=== PATIENT | male | born 1945 | race Caucasian/White ===

== ENCOUNTER 2021-03-06 12:03 | Day surgery (SDCO) | payer MEDICARE ==
[~2021-03-06] VITALS: Ht 195.6 cm; Wt 107.7 kg
[2021-03-06 12:31] LABS: BASOPHIL 0.2 % (0-2); EOSINOPHIL 1.3 % (0-7); HCT 28.9 % (42.0-52.0); HGB 8.8 g/dl (13.2-18.0); LYMPHOCYTE 10.3 % (15-48); MCH 23.2 pg (25.0-31.0); MCHC 30.4 g/dL (32.0-36.0); MCV 76.1 fL (78.0-100.0); MONOCYTE 7.7 % (0-12); NEUTROPHIL 80.2 % (41-80); NRBC 0; PLT 316 K/uL (150-400); RDW 15.9 % (11.5-14.0); WBC 9.3 K/uL (4.0-10.5)
[2021-03-06 12:40] LABS: INR 1.18 (0.9-1.2); PROTHROMBIN TIME 14.2 SECONDS (11.4-13.6)
[2021-03-06 12:41] LABS: PTT 32.3 SECONDS (22.2-34.7)
[2021-03-06 12:47] LABS: ALBUMIN 2.8 g/dL (3.4-5.0); BILIRUBIN - TOTAL 0.7 mg/dL (0.2-1.0); CREATININE 0.85 mg/dL (0.67-1.17); GLOBULIN (CALCULATION) 4.3 g/dL; POTASSIUM 4.6 mmol/L (3.5-5.1); TOTAL PROTEIN 7.1 g/dL (6.4-8.2)
[2021-03-06] MEDS ORDERED: 8 HOUR650 MG PO (17:07)
[2021-03-06] MEDS ORDERED: ASPIRIN EC81 MG PO (17:08)
[2021-03-06] MEDS ORDERED: ARICEPT 5MG TABL5 MG PO (17:08)
[2021-03-06] MEDS ORDERED: EFFEXOR-XR 75 M75 MG PO (17:09)
[2021-03-06] MEDS ORDERED: CELEXA10 MG PO (17:09)
[2021-03-06] MEDS ORDERED: ESOMEPRAZOLE MA20 MG PO (17:11)
[2021-03-06] MEDS ORDERED: FEROSUL325 MG PO (17:12)
[2021-03-06] MEDS ORDERED: FLOMAX 0.4 MG0.4 MG PO (17:15)
[2021-03-06] MEDS ORDERED: INSULIN LI100 UNIT/2 SC (17:17)
[2021-03-06] MEDS ORDERED: PRINIVIL20 MG PO ×2 (17:18)
[2021-03-06] MEDS ORDERED: ATIVAN0.5 MG PO ×2 (17:19→17:20)
[2021-03-06] MEDS ORDERED: MELADOX3 MG PO (17:21)
[2021-03-06] MEDS ORDERED: METFORMIN HCL500 MG PO (17:22)
[2021-03-06] MEDS ORDERED: MIRALAX17 GM PO (17:23)
[2021-03-06] MEDS ORDERED: DAILY VITE1 EACH PO (17:24)
[2021-03-06] MEDS ORDERED: ONDANSETRON HCL4 MG PO (17:25)
[2021-03-06] MEDS ORDERED: RISPERDAL 1MG TA1 MG PO (17:26)
[2021-03-06] MEDS ORDERED: ZOCOR20 MG PO (17:26)
[2021-03-06] MEDS ORDERED: TRAZODONE 50MG50 MG PO (17:27)
[2021-03-07 04:03] LABS: BILIRUBIN NEGATIVE (NEGATIVE); BLOOD NEGATIVE Ery/uL (NEGATIVE); CLARITY CLEAR (CLEAR); COLOR YELLOW (YELLOW); GLUCOSE (U) NORMAL (NORMAL); LEUKOCYTES NEGATIVE Leu/uL (NEGATIVE); NITRITE NEGATIVE (NEGATIVE); PROTEIN NEGATIVE (NEGATIVE); SPECIFIC GRAVITY 1.015 (1.001-1.030)
[2021-03-07 05:43] LABS: BASOPHIL 0.3 % (0-2); EOSINOPHIL 2.2 % (0-7); HCT 29.2 % (42.0-52.0); HGB 8.7 g/dl (13.2-18.0); LYMPHOCYTE 13.2 % (15-48); MCH 23.3 pg (25.0-31.0); MCHC 29.8 g/dL (32.0-36.0); MCV 78.1 fL (78.0-100.0); MONOCYTE 9.7 % (0-12); MPV 9.9 fL (6.0-9.5); NRBC 0; PLT 265 K/uL (150-400); RBC 3.74 M/uL (4.70-6.00); RDW 16.1 % (11.5-14.0); RETICULOCYTE COUNT 0.9 % (1.0-2.0); WBC 7.1 K/uL (4.0-10.5)
[2021-03-07 06:02] LABS: IRON % SATURATION 7.9 %SAT (20-50)
[2021-03-07 06:03] LABS: ALBUMIN 2.6 g/dL (3.4-5.0); BILIRUBIN - TOTAL 0.6 mg/dL (0.2-1.0); BUN/CREAT RATIO (CALC) 18.2 RATIO; CREATININE 0.88 mg/dL (0.67-1.17); GLOBULIN (CALCULATION) 4.2 g/dL; POTASSIUM 4.4 mmol/L (3.5-5.1); TOTAL PROTEIN 6.8 g/dL (6.4-8.2)
--- NOTE | 2021-03-07 13:38 | NUR ---
03/07/21 Mr. Macdonald will be discahrge back to [facility]. He needs transportation assistance. Mr. Macdonald is not eligible for Medicaid to pay for [employer] transportation. [place] will pay for the [employer] transportation and therefore, will fax the required form to [facility] to schedule the transport. A report was given to ESTELA Graves RN.
== END 2021-03-07 16:00 ==
LOC: FER 12:03 → FTCU 16:12
PROVIDERS: Emergency Medicine; ADMIT Internal Medicine
DX: R07.89 Other chest pain (principal); N28.1 Cyst of kidney, acquired; R60.0 Localized edema; I11.9 Hypertensive heart disease without heart failure; E78.5 Hyperlipidemia, unspecified; E11.9 Type 2 diabetes mellitus without complications; K21.9 Gastro-esophageal reflux disease without esophagitis; K80.20 Calculus of gallbladder without cholecystitis without obstruction; I47.1 Supraventricular tachycardia; I07.1 Rheumatic tricuspid insufficiency; J90 Pleural effusion, not elsewhere classified; I48.0 Paroxysmal atrial fibrillation; Z87.891 Personal history of nicotine dependence; Z79.4 Long term (current) use of insulin; Z79.82 Long term (current) use of aspirin; Z79.899 Other long term (current) drug therapy; Z88.0 Allergy status to penicillin; Z88.2 Allergy status to sulfonamides; Z88.8 Allergy status to other drugs, medicaments and biological substances; Z20.822 Contact with and (suspected) exposure to COVID-19
CPT/HCPCS: 36415; 71045; 71275; 80053; 80061; 81003; 82962; 83036; 83540; 83550; 84484; 85025; 85379; 85610; 85730; 93005; G0378; J1650; J2060; J2270; J2405; Q9967; U0002

== ENCOUNTER 2021-04-05 15:12 | Emergency (ER) | payer MEDICARE ==
[~2021-04-05 15:12] MED LIST: 8 HOUR650 MG PO; ARICEPT 5MG TABL5 MG PO; ASPIRIN EC81 MG PO; ATIVAN0.5 MG PO; CELEXA10 MG PO; DAILY VITE1 EACH PO; EFFEXOR-XR 75 M75 MG PO; ESOMEPRAZOLE MA20 MG PO; FEROSUL325 MG PO; FLOMAX 0.4 MG0.4 MG PO; INSULIN LI100 UNIT/2 SC; MELADOX3 MG PO; METFORMIN HCL500 MG PO; MIRALAX17 GM PO; ONDANSETRON HCL4 MG PO; PRINIVIL20 MG PO; RISPERDAL 1MG TA1 MG PO; TRAZODONE 50MG50 MG PO; ZOCOR20 MG PO
[2021-04-05] MEDS ORDERED: HYDROCODON-ACE1 EAC2 PO (18:00)
== END 2021-04-05 19:47 | disposition home or self-care (01) ==
LOC: FER 15:12
DX: S32.9XXA Fracture of unspecified parts of lumbosacral spine and pelvis, initial encounter for closed fracture (principal); E11.9 Type 2 diabetes mellitus without complications; I10 Essential (primary) hypertension; Z87.891 Personal history of nicotine dependence; Z88.0 Allergy status to penicillin; Z88.2 Allergy status to sulfonamides; Z88.8 Allergy status to other drugs, medicaments and biological substances; Z20.822 Contact with and (suspected) exposure to COVID-19; W19.XXXA Unspecified fall, initial encounter; Y92.121 Bathroom in nursing home as the place of occurrence of the external cause
CPT/HCPCS: 73502; U0002

== ENCOUNTER 2021-04-18 13:25 | Inpatient (IN) | payer MEDICARE, OTHER ==
[~2021-04-18] VITALS: Ht 193 cm; Wt 86.4 kg
[~2021-04-18 13:25] MED LIST changes: +HYDROCODON-ACE1 EAC2 PO
[2021-04-18 14:16] LABS: BASOPHIL 0.2 % (0-2); EOSINOPHIL 0.6 % (0-7); HCT 35.3 % (42.0-52.0); HGB 10.3 g/dl (13.2-18.0); LYMPHOCYTE 4.4 % (15-48); MCH 22.8 pg (25.0-31.0); MCHC 29.2 g/dL (32.0-36.0); MCV 78.1 fL (78.0-100.0); MONOCYTE 6.1 % (0-12); MPV 11.1 fL (6.0-9.5); NEUTROPHIL 88.1 % (41-80); NRBC 0; PLT 314 K/uL (150-400); RBC 4.52 M/uL (4.70-6.00); RDW 18.3 % (11.5-14.0); WBC 17.9 K/uL (4.0-10.5)
[2021-04-18 14:32] LABS: INR 1.26 (0.9-1.2); PROTHROMBIN TIME 15.1 SECONDS (11.8-13.4); PTT 33.8 SECONDS (24.4-34.7)
[2021-04-18 14:38] LABS: ALBUMIN 2.6 g/dL (3.4-5.0); BILIRUBIN - TOTAL 0.5 mg/dL (0.2-1.0); CREATININE 3.56 mg/dL (0.67-1.17); GLOBULIN (CALCULATION) 4.2 g/dL; POTASSIUM 5.5 mmol/L (3.5-5.1); TOTAL PROTEIN 6.8 g/dL (6.4-8.2)
[2021-04-18 14:48] LABS: LACTIC ACID 1.1 mmol/L (0.4-1.9)
[2021-04-18 15:36] LABS: BILIRUBIN 1+ mg/dL (NEGATIVE); BLOOD 1+ Ery/uL (NEGATIVE); CLARITY CLEAR (CLEAR); COLOR YELLOW (YELLOW); GLUCOSE (U) NORMAL (NORMAL); LEUKOCYTES TRACE Leu/uL (NEGATIVE); NITRITE NEGATIVE (NEGATIVE); PROTEIN TRACE (LOW) mg/dL (NEGATIVE); SPECIFIC GRAVITY 1.025 (1.001-1.030); UROBILINOGEN 0.2 mg/dL (0.2-1.0)
[2021-04-18 15:49] LABS: BACTERIA 1+
[2021-04-19] MEDS ORDERED: DEPAKOTE250 MG PO (06:47)
[2021-04-19] MEDS ORDERED: LASIX20 MG PO (06:48)
[2021-04-19] MEDS ORDERED: ADULT TUSS100 MG/5 M PO (06:49)
[2021-04-19] MEDS ORDERED: LOPERAMIDE2 MG PO (06:52)
[2021-04-19] MEDS ORDERED: MAG-AL LIQUID30 ML PO (06:52)
[2021-04-19] MEDS ORDERED: NITROQUIK SL0.4 MG SL (06:54)
[2021-04-19] MEDS ORDERED: NITROGLYCERIN1 EAC1 TD (06:54)
[2021-04-19] MEDS ORDERED: PRILOSEC20 MG PO (06:56)
[2021-04-19] MEDS ORDERED: K-DUR20 MEQ PO (06:56)
[2021-04-19 07:06] LABS: BASOPHIL 0.2 % (0-2); EOSINOPHIL 0.9 % (0-7); HCT 34.6 % (42.0-52.0); HGB 9.9 g/dl (13.2-18.0); LYMPHOCYTE 4.9 % (15-48); MCH 23.4 pg (25.0-31.0); MCHC 28.6 g/dL (32.0-36.0); MCV 81.8 fL (78.0-100.0); MPV 11.7 fL (6.0-9.5); NEUTROPHIL 86.2 % (41-80); NRBC 0; PLT 245 K/uL (150-400); RBC 4.23 M/uL (4.70-6.00); RDW 18.8 % (11.5-14.0); WBC 12.9 K/uL (4.0-10.5)
[2021-04-19 07:16] LABS: CREATININE 1.95 mg/dL (0.67-1.17); POTASSIUM 5.1 mmol/L (3.5-5.1)
--- NOTE | 2021-04-19 16:41 | NUR ---
04/19/21 [facility] will accept patient back per Renata.
[2021-04-20 11:34] LABS: IRON % SATURATION 20.4 %SAT (20-50)
[2021-04-20 11:52] LABS: BASOPHIL 0.3 % (0-2); EOSINOPHIL 2.2 % (0-7); HCT 33.9 % (42.0-52.0); LYMPHOCYTE 7.4 % (15-48); MCH 23.5 pg (25.0-31.0); MCHC 29.5 g/dL (32.0-36.0); MCV 79.8 fL (78.0-100.0); MONOCYTE 6.1 % (0-12); MPV 11.5 fL (6.0-9.5); NRBC 0; PLT 316 K/uL (150-400); RBC 4.25 M/uL (4.70-6.00); RDW 18.6 % (11.5-14.0); WBC 10.5 K/uL (4.0-10.5)
[2021-04-20 12:13] LABS: CREATININE 1.05 mg/dL (0.67-1.17); FOLIC ACID (SERUM) 10.4 ng/mL (8.6-58.9); MAGNESIUM 1.2 mg/dL (1.8-2.4)
[2021-04-21 06:41] LABS: BASOPHIL 0.5 % (0-2); EOSINOPHIL 2.6 % (0-7); HCT 28.7 % (42.0-52.0); HGB 8.6 g/dl (13.2-18.0); LYMPHOCYTE 11.7 % (15-48); MCH 23.4 pg (25.0-31.0); MONOCYTE 7.7 % (0-12); MPV 10.4 fL (6.0-9.5); NEUTROPHIL 76.6 % (41-80); NRBC 0; PLT 235 K/uL (150-400); RBC 3.68 M/uL (4.70-6.00); WBC 8.7 K/uL (4.0-10.5)
[2021-04-21 07:05] LABS: BUN/CREAT RATIO (CALC) 31.9 RATIO; CREATININE 0.94 mg/dL (0.67-1.17); MAGNESIUM 1.1 mg/dL (1.8-2.4); POTASSIUM 3.5 mmol/L (3.5-5.1)
[2021-04-21 12:17] LABS: BILIRUBIN NEGATIVE (NEGATIVE); BLOOD TRACE-INTACT Ery/uL (NEGATIVE); CLARITY CLEAR (CLEAR); COLOR YELLOW (YELLOW); GLUCOSE (U) 1+ mg/dL (NORMAL); LEUKOCYTES NEGATIVE Leu/uL (NEGATIVE); NITRITE NEGATIVE (NEGATIVE); PROTEIN TRACE (LOW) mg/dL (NEGATIVE); SPECIFIC GRAVITY 1.025 (1.001-1.030); UROBILINOGEN 0.2 mg/dL (0.2-1.0); pH 5.5 (5.0-9.0)
[2021-04-21 12:50] LABS: BACTERIA TRACE; URINARY WBC RARE
[2021-04-21] MEDS ORDERED: CEFDINIR300 MG PO (13:41)
[2021-04-21] MEDS ORDERED: POLY-IRON150 MG PO (13:55)
--- NOTE | 2021-04-21 18:46 | NUR ---
[facility] CAME BACK WITH POSSIBLE HIP FRACTURE, DR BURTON WANTED ME TO CALL [facility] AND LET THEM KNOW. TALKED WITH NURSE AND EXPLAINED THE EXRAY AND HE STATED THAT THEY WERE AWARE OF THE FRACTURE AND THE DOCTOR AND DON AGREED THAT THEY WERE NOT GOING TO DO ANYTHING. I LET DR BURTON KNOW OF THIS
== END 2021-04-21 17:21 | DRG 871 ==
LOC: FER 13:25 → FTCU 16:03 → FMS 04-19 19:22
PROVIDERS: Emergency Medicine; Internal Medicine; Nurse Practitioner; ADMIT Internal Medicine
DX: A41.9 Sepsis, unspecified organism (principal); G93.41 Metabolic encephalopathy; N30.01 Acute cystitis with hematuria; N17.9 Acute kidney failure, unspecified; F32.3 Major depressive disorder, single episode, severe with psychotic features; M84.454A Pathological fracture, pelvis, initial encounter for fracture; I95.9 Hypotension, unspecified; D50.9 Iron deficiency anemia, unspecified; E83.42 Hypomagnesemia; Z20.822 Contact with and (suspected) exposure to COVID-19; L89.312 Pressure ulcer of right buttock, stage 2; E11.9 Type 2 diabetes mellitus without complications; N28.89 Other specified disorders of kidney and ureter; I10 Essential (primary) hypertension; D64.9 Anemia, unspecified; F41.9 Anxiety disorder, unspecified; N40.0 Benign prostatic hyperplasia without lower urinary tract symptoms; G47.00 Insomnia, unspecified; K21.9 Gastro-esophageal reflux disease without esophagitis; Z88.0 Allergy status to penicillin; Z88.2 Allergy status to sulfonamides; Z88.8 Allergy status to other drugs, medicaments and biological substances; Z89.022 Acquired absence of left finger(s)
CPT/HCPCS: 36415; 36600; 70450; 71250; 72170; 73560; 80048; 80053; 81001; 82607; 82746; 82803; 82962; 83540; 83550; 83605; 83735; 83880; 84100; 84145; 84484; 85025; 85610; 85730; 87040; 87088; 93005; 96365; C9113; J0696; J1630; J1644; J2405; J3475; J7030; J7040; U0002

== ENCOUNTER 2021-04-28 11:40 | Emergency (ER) | payer MEDICARE, OTHER ==
[~2021-04-28 11:40] MED LIST changes: +ADULT TUSS100 MG/5 M PO; +CEFDINIR300 MG PO; +DEPAKOTE250 MG PO; +K-DUR20 MEQ PO; +LASIX20 MG PO; +LOPERAMIDE2 MG PO; +MAG-AL LIQUID30 ML PO; +NITROGLYCERIN1 EAC1 TD; +NITROQUIK SL0.4 MG SL; +POLY-IRON150 MG PO; +PRILOSEC20 MG PO
[2021-04-28 13:04] LABS: BASOPHIL 0.4 % (0-2); HCT 32.4 % (42.0-52.0); HGB 9.7 g/dl (13.2-18.0); LYMPHOCYTE 10.3 % (15-48); MCH 23.6 pg (25.0-31.0); MCHC 29.9 g/dL (32.0-36.0); MCV 78.8 fL (78.0-100.0); MONOCYTE 8.2 % (0-12); MPV 10.6 fL (6.0-9.5); NEUTROPHIL 79.3 % (41-80); NRBC 0; PLT 250 K/uL (150-400); RBC 4.11 M/uL (4.70-6.00); WBC 9.8 K/uL (4.0-10.5)
[2021-04-28 13:18] LABS: BUN/CREAT RATIO (CALC) 16.4 RATIO; CREATININE 0.73 mg/dL (0.67-1.17); POTASSIUM 4.2 mmol/L (3.5-5.1)
== END 2021-04-28 15:50 | disposition home or self-care (01) ==
LOC: FER 11:40
PROVIDERS: Nurse Practitioner Family
DX: S01.81XA Laceration without foreign body of other part of head, initial encounter (principal); E11.9 Type 2 diabetes mellitus without complications; I10 Essential (primary) hypertension; F03.90 Unspecified dementia, unspecified severity, without behavioral disturbance, psychotic disturbance, mood disturbance, and anxiety; W19.XXXA Unspecified fall, initial encounter; W22.8XXA Striking against or struck by other objects, initial encounter; Y92.009 Unspecified place in unspecified non-institutional (private) residence as the place of occurrence of the external cause
CPT/HCPCS: 36415; 70450; 72125; 80048; 85025

== ENCOUNTER 2021-05-04 12:52 | Day surgery (SDCO) | payer MEDICARE, OTHER ==
[~2021-05-04] VITALS: Ht 193 cm; Wt 84.0 kg
[2021-05-04 13:33] LABS: BASOPHIL 0.3 % (0-2); EOSINOPHIL 0.7 % (0-7); HCT 30.7 % (42.0-52.0); HGB 9.1 g/dl (13.2-18.0); LYMPHOCYTE 9.4 % (15-48); MCH 23.3 pg (25.0-31.0); MCHC 29.6 g/dL (32.0-36.0); MCV 78.7 fL (78.0-100.0); MONOCYTE 9.2 % (0-12); MPV 10.5 fL (6.0-9.5); NEUTROPHIL 79.6 % (41-80); NRBC 0; PLT 365 K/uL (150-400); WBC 11.6 K/uL (4.0-10.5)
[2021-05-04 14:11] LABS: BILIRUBIN NEGATIVE (NEGATIVE); BLOOD NEGATIVE Ery/uL (NEGATIVE); CLARITY CLEAR (CLEAR); COLOR YELLOW (YELLOW); GLUCOSE (U) NORMAL (NORMAL); LEUKOCYTES NEGATIVE Leu/uL (NEGATIVE); NITRITE NEGATIVE (NEGATIVE); PROTEIN TRACE (LOW) mg/dL (NEGATIVE); SPECIFIC GRAVITY 1.025 (1.001-1.030); UROBILINOGEN 0.2 mg/dL (0.2-1.0); pH 5.5 (5.0-9.0)
[2021-05-04 14:25] LABS: URINARY RBC RARE
[2021-05-04 14:25] LABS: ALBUMIN 2.2 g/dL (3.4-5.0); BILIRUBIN - TOTAL 0.4 mg/dL (0.2-1.0); BUN/CREAT RATIO (CALC) 31.7 RATIO; CREATININE 1.42 mg/dL (0.67-1.17); GLOBULIN (CALCULATION) 3.9 g/dL; MAGNESIUM 1.3 mg/dL (1.8-2.4); TOTAL PROTEIN 6.1 g/dL (6.4-8.2)
[2021-05-04] MEDS ORDERED: DEPAKOTE SPRIN125 M2 PO (18:37)
--- NOTE | 2021-05-05 05:32 | NUR ---
PATIENT REFUSING TO WEAR TELE MONITOR. MYLES BAKER AWARE. NO NEW ORDERS.
[2021-05-05 06:03] LABS: BASOPHIL 0.3 % (0-2); EOSINOPHIL 1.4 % (0-7); HCT 28.6 % (42.0-52.0); HGB 8.5 g/dl (13.2-18.0); LYMPHOCYTE 11.9 % (15-48); MCH 23.5 pg (25.0-31.0); MCHC 29.7 g/dL (32.0-36.0); MCV 79.2 fL (78.0-100.0); MONOCYTE 9.9 % (0-12); MPV 10.8 fL (6.0-9.5); NRBC 0; PLT 291 K/uL (150-400); RBC 3.61 M/uL (4.70-6.00); RDW 18.7 % (11.5-14.0); RETICULOCYTE COUNT 0.9 % (1.0-2.0); WBC 7.3 K/uL (4.0-10.5)
[2021-05-05 07:39] LABS: BUN/CREAT RATIO (CALC) 34.8 RATIO; CREATININE 0.89 mg/dL (0.67-1.17); POTASSIUM 3.7 mmol/L (3.5-5.1)
[2021-05-05] MEDS ORDERED: FOLIC ACID1 MG PO (08:54)
== END 2021-05-05 10:22 ==
LOC: FER 12:52 → FMS 17:14
PROVIDERS: Emergency Medicine; ADMIT Internal Medicine
DX: E86.0 Dehydration (principal); G93.41 Metabolic encephalopathy; N17.9 Acute kidney failure, unspecified; I95.9 Hypotension, unspecified; E83.42 Hypomagnesemia; D50.9 Iron deficiency anemia, unspecified; E53.8 Deficiency of other specified B group vitamins; F03.90 Unspecified dementia, unspecified severity, without behavioral disturbance, psychotic disturbance, mood disturbance, and anxiety; E11.9 Type 2 diabetes mellitus without complications; I10 Essential (primary) hypertension; N40.0 Benign prostatic hyperplasia without lower urinary tract symptoms; G47.00 Insomnia, unspecified; Z20.822 Contact with and (suspected) exposure to COVID-19; K21.9 Gastro-esophageal reflux disease without esophagitis; N28.89 Other specified disorders of kidney and ureter; J98.11 Atelectasis; J33.8 Other polyp of sinus; R05 Cough; R19.7 Diarrhea, unspecified; Z87.891 Personal history of nicotine dependence; Z79.82 Long term (current) use of aspirin; Z79.899 Other long term (current) drug therapy; Z88.0 Allergy status to penicillin; Z88.1 Allergy status to other antibiotic agents; Z88.2 Allergy status to sulfonamides; Z88.8 Allergy status to other drugs, medicaments and biological substances
CPT/HCPCS: 36415; 70450; 71275; 80048; 80053; 81001; 82607; 82728; 82746; 82962; 83540; 83605; 83615; 83690; 83735; 84145; 84484; 85025; 85379; 86140; 87040; 87088; 93005; G0378; J2916; J3475; J7030; Q9967; U0002

== ENCOUNTER 2021-06-06 11:18 | Inpatient (IN) | payer MEDICARE, OTHER ==
[~2021-06-06] VITALS: Ht 195.6 cm; Wt 80.9 kg
[~2021-06-06 11:18] MED LIST changes: +DEPAKOTE SPRIN125 M2 PO; +FOLIC ACID1 MG PO
[2021-06-06 11:55] LABS: BASOPHIL 0.3 % (0-2); HCT 30.9 % (42.0-52.0); HGB 9.2 g/dl (13.2-18.0); LYMPHOCYTE 12.6 % (15-48); MCH 24.9 pg (25.0-31.0); MCHC 29.8 g/dL (32.0-36.0); MCV 83.5 fL (78.0-100.0); MONOCYTE 7.2 % (0-12); MPV 10.6 fL (6.0-9.5); NEUTROPHIL 78.1 % (41-80); NRBC 0; PLT 304 K/uL (150-400); RDW 19.9 % (11.5-14.0)
[2021-06-06 12:12] LABS: BILIRUBIN NEGATIVE (NEGATIVE); BLOOD NEGATIVE Ery/uL (NEGATIVE); CLARITY CLEAR (CLEAR); COLOR YELLOW (YELLOW); GLUCOSE (U) TRACE mg/dL (NORMAL); LEUKOCYTES NEGATIVE Leu/uL (NEGATIVE); NITRITE NEGATIVE (NEGATIVE); PROTEIN NEGATIVE (NEGATIVE)
[2021-06-06 12:21] LABS: AMPHETAMINES NEGATIVE (NEGATIVE); BARBITURATES NEGATIVE (NEGATIVE); ECSTASY (MDMA) NEGATIVE (NEGATIVE); MARIJUANA (THC) NEGATIVE (NEGATIVE); METHADONE NEGATIVE (NEGATIVE); OPIATES NEGATIVE (NEGATIVE)
[2021-06-06 12:22] LABS: OXYCODONE NEGATIVE (NEGATIVE)
[2021-06-06 12:31] LABS: ALBUMIN 2.1 g/dL (3.4-5.0); BILIRUBIN - TOTAL 0.5 mg/dL (0.2-1.0); BUN/CREAT RATIO (CALC) 24.8 RATIO; CREATININE 1.29 mg/dL (0.67-1.17); GLOBULIN (CALCULATION) 4.6 g/dL; MAGNESIUM 1.5 mg/dL (1.8-2.4); POTASSIUM 4.5 mmol/L (3.5-5.1); TOTAL PROTEIN 6.7 g/dL (6.4-8.2)
[2021-06-06 12:51] LABS: INR 1.14 (0.9-1.2); LACTIC ACID 3.7 mmol/L (0.4-1.9)
[2021-06-06] MEDS ORDERED: ACETAMINOPHEN325 MG PO (15:43)
[2021-06-06] MEDS ORDERED: ASPIRIN EC81 MG PO (15:43)
[2021-06-06] MEDS ORDERED: ARICEPT 5MG TABL5 MG PO (15:43)
[2021-06-06] MEDS ORDERED: DEPAKOTE250 MG PO ×2 (15:44)
[2021-06-06] MEDS ORDERED: FLOMAX0.4 MG PO (15:45)
[2021-06-06] MEDS ORDERED: FEOSOL325 MG PO (15:45)
[2021-06-06] MEDS ORDERED: LASIX20 MG PO (15:46)
[2021-06-06] MEDS ORDERED: FOLIC ACID1 M1 PO (15:46)
[2021-06-06] MEDS ORDERED: ADULT TUSS100 MG/5 M PO (15:47)
[2021-06-06] MEDS ORDERED: HYDROCODON-ACE1 EAC2 PO (15:48)
[2021-06-06] MEDS ORDERED: APIDRA SOL100 UNIT/1 SC (15:48)
[2021-06-06] MEDS ORDERED: IMODIUM2 MG PO (15:49)
[2021-06-06] MEDS ORDERED: PRINIVIL20 MG PO (15:49)
[2021-06-06] MEDS ORDERED: ATIVAN0.5 MG PO (15:50)
[2021-06-06] MEDS ORDERED: METFORMIN HCL500 M3 PO (15:50)
[2021-06-06] MEDS ORDERED: ATIVAN1 M1 PO (15:50)
[2021-06-06] MEDS ORDERED: MILK OF MA400 MG/5 M PO (15:51)
[2021-06-06] MEDS ORDERED: ONE-DAILY MULT1 EACH PO (15:52)
[2021-06-06] MEDS ORDERED: NITROQUIK SL0.4 MG PO (15:52)
[2021-06-06] MEDS ORDERED: PRILOSEC20 MG PO (15:52)
[2021-06-06] MEDS ORDERED: CLEARLAX17 GM PO (15:53)
[2021-06-06] MEDS ORDERED: ONDANSETRON ODT4 MG PO (15:53)
[2021-06-06] MEDS ORDERED: POTASSIUM CHLO20 ME2 PO (15:54)
[2021-06-06] MEDS ORDERED: RISPERIDONE1 M1 PO (15:55)
[2021-06-06] MEDS ORDERED: DESYREL50 MG PO (15:56)
[2021-06-06] MEDS ORDERED: SILVADENE20 GM TOP (15:56)
[2021-06-06] MEDS ORDERED: EFFEXOR-XR 75 M75 MG PO (15:57)
[2021-06-06 17:04] LABS: RETICULOCYTE COUNT 1.7 % (1.0-2.0)
[2021-06-06 17:11] LABS: IRON % SATURATION 16.9 %SAT (20-50)
[2021-06-06 17:51] LABS: FOLIC ACID (SERUM) 55.8 ng/mL (8.6-58.9)
[2021-06-07 06:21] LABS: BASOPHIL 0.4 % (0-2); EOSINOPHIL 1.5 % (0-7); HCT 28.5 % (42.0-52.0); HGB 8.6 g/dl (13.2-18.0); LYMPHOCYTE 17.7 % (15-48); MCH 24.9 pg (25.0-31.0); MCHC 30.2 g/dL (32.0-36.0); MCV 82.6 fL (78.0-100.0); MONOCYTE 8.2 % (0-12); NEUTROPHIL 71.8 % (41-80); NRBC 0; PLT 242 K/uL (150-400); RBC 3.45 M/uL (4.70-6.00); RDW 19.6 % (11.5-14.0); WBC 7.2 K/uL (4.0-10.5)
[2021-06-07 06:49] LABS: BUN/CREAT RATIO (CALC) 31.4 RATIO; CREATININE 0.86 mg/dL (0.67-1.17); MAGNESIUM 1.6 mg/dL (1.8-2.4); PHOSPHORUS 3.3 mg/dL (2.6-4.7); POTASSIUM 4.1 mmol/L (3.5-5.1)
[2021-06-07 06:56] LABS: PRO-BNP 494 pg/mL (<450)
--- NOTE | 2021-06-08 01:14 | NUR ---
PT CONFUSED, WILL NOT STOP REMOVING TELEMETRY, O2, ETC.
--- NOTE | 2021-06-08 02:37 | NUR ---
PT WOULD NOT KEEP TELE, O2, IV IN PLACE, REPLACED IV, 02 DROPPED INTO 70'S AFTER PT CONTINUED TO REMOVE CANNULA. WHEN ATTEMPTING TO RAISE 02 PT LESS RESPONSIVE THAN EARLIER IN SHIFT (PT HAD BEEN SINGING & CALLING OUT PRIOR). NON RESPONSIVE TO STERNAL RUN, RAPID RESPONSE CALLED. BG 71, V/S WNL, 02 RETURNED TO 95-100% WITH 02 RAISED TO 3L, REMAINS ON NASAL CANULA. CITY ADMINISTRATOR ORDERED ABG'S. MONITORING PT.
[2021-06-08 02:43] LABS: BASOPHIL 0.3 % (0-2); EOSINOPHIL 1.7 % (0-7); HCT 27.1 % (42.0-52.0); HGB 8.3 g/dl (13.2-18.0); LYMPHOCYTE 14.1 % (15-48); MCH 25.2 pg (25.0-31.0); MCHC 30.6 g/dL (32.0-36.0); MCV 82.1 fL (78.0-100.0); MONOCYTE 8.4 % (0-12); NRBC 0; PLT 278 K/uL (150-400); RDW 19.5 % (11.5-14.0); WBC 7.5 K/uL (4.0-10.5)
[2021-06-08 03:00] LABS: MAGNESIUM 1.3 mg/dL (1.8-2.4); PHOSPHORUS 3.1 mg/dL (2.6-4.7)
[2021-06-08 03:01] LABS: ALBUMIN 1.7 g/dL (3.4-5.0); BILIRUBIN - TOTAL 0.6 mg/dL (0.2-1.0); BUN/CREAT RATIO (CALC) 36.5 RATIO; CREATININE 0.63 mg/dL (0.67-1.17); GLOBULIN (CALCULATION) 4.1 g/dL; POTASSIUM 4.2 mmol/L (3.5-5.1); TOTAL PROTEIN 5.8 g/dL (6.4-8.2)
[2021-06-08 03:09] LABS: CKMB 1.7 ng/mL (0.0-3.6)
[2021-06-09 05:38] LABS: BASOPHIL 0.3 % (0-2); EOSINOPHIL 1.3 % (0-7); HCT 24.2 % (42.0-52.0); HGB 7.4 g/dl (13.2-18.0); LYMPHOCYTE 14.3 % (15-48); MCH 25.3 pg (25.0-31.0); MCHC 30.6 g/dL (32.0-36.0); MCV 82.9 fL (78.0-100.0); MONOCYTE 10.5 % (0-12); MPV 10.3 fL (6.0-9.5); NRBC 0; PLT 242 K/uL (150-400); RBC 2.92 M/uL (4.70-6.00); RDW 19.2 % (11.5-14.0); WBC 6.2 K/uL (4.0-10.5)
[2021-06-09 06:03] LABS: ALBUMIN 1.6 g/dL (3.4-5.0); BILIRUBIN - TOTAL 0.3 mg/dL (0.2-1.0); BUN/CREAT RATIO (CALC) 33.8 RATIO; CREATININE 0.65 mg/dL (0.67-1.17); GLOBULIN (CALCULATION) 3.7 g/dL; MAGNESIUM 1.4 mg/dL (1.8-2.4); POTASSIUM 4.2 mmol/L (3.5-5.1); TOTAL PROTEIN 5.3 g/dL (6.4-8.2)
[2021-06-09] MEDS ORDERED: VIBRAMYCIN100 MG PO (12:10)
== END 2021-06-09 18:32 | DRG 871 ==
LOC: FER 11:18 → FMS 14:17
PROVIDERS: Emergency Medicine; Family Medicine; Nurse Practitioner; ADMIT Internal Medicine
DX: A41.9 Sepsis, unspecified organism (principal); J18.9 Pneumonia, unspecified organism; G93.41 Metabolic encephalopathy; Z20.822 Contact with and (suspected) exposure to COVID-19; R65.20 Severe sepsis without septic shock; L89.321 Pressure ulcer of left buttock, stage 1; L89.311 Pressure ulcer of right buttock, stage 1; F03.90 Unspecified dementia, unspecified severity, without behavioral disturbance, psychotic disturbance, mood disturbance, and anxiety; N28.89 Other specified disorders of kidney and ureter; E11.9 Type 2 diabetes mellitus without complications; I10 Essential (primary) hypertension; F41.9 Anxiety disorder, unspecified; R13.10 Dysphagia, unspecified; T42.4X5A Adverse effect of benzodiazepines, initial encounter; F32.9 Major depressive disorder, single episode, unspecified; N40.0 Benign prostatic hyperplasia without lower urinary tract symptoms; D63.8 Anemia in other chronic diseases classified elsewhere; K21.9 Gastro-esophageal reflux disease without esophagitis; Z88.0 Allergy status to penicillin; Z88.2 Allergy status to sulfonamides; Z88.8 Allergy status to other drugs, medicaments and biological substances; Z87.891 Personal history of nicotine dependence; Z98.890 Other specified postprocedural states
CPT/HCPCS: 36415; 36600; 70450; 71045; 71250; 80048; 80053; 80305; 81003; 82553; 82607; 82746; 82803; 82962; 83540; 83550; 83605; 83615; 83735; 83880; 84100; 84145; 84443; 84484; 85025; 85610; 85730; 87040; 87088; 93005; 94010; 94760; 97162; 97165; 97535; J0456; J0692; J1650; J2916; J3360; J3475; J7040; J7050; J7120; U0002

== ENCOUNTER 2021-06-17 17:50 | Emergency (ER) | payer MEDICARE, OTHER ==
[~2021-06-17 17:50] MED LIST changes: +ACETAMINOPHEN325 MG PO; +APIDRA SOL100 UNIT/1 SC; +ATIVAN1 M1 PO; +CLEARLAX17 GM PO; +DESYREL50 MG PO; +FEOSOL325 MG PO; +FLOMAX0.4 MG PO; +FOLIC ACID1 M1 PO; +IMODIUM2 MG PO; +LEVAQUIN750 MG PO; +METFORMIN HCL500 M3 PO; +MILK OF MA400 MG/5 M PO; +NITROQUIK SL0.4 MG PO; +ONDANSETRON ODT4 MG PO; +ONE-DAILY MULT1 EACH PO; +POTASSIUM CHLO20 ME2 PO; +RISPERIDONE1 M1 PO; +SILVADENE20 GM TOP; +VIBRAMYCIN100 MG PO
== END 2021-06-17 18:05 | disposition expired ==
LOC: FER 17:50
DX: I46.9 Cardiac arrest, cause unspecified (principal)
CPT/HCPCS: 92950